=== PATIENT | female | born 1995 | race Two or more races ===

== ENCOUNTER 2024-06-28 07:30 | Inpatient (IN) | payer MEDICAID, SELFPAY ==
[2024-06-28] VITALS (81 sets, daily range): BP systolic 98–132; BP diastolic 56–75; PULSE 62–106; RESP 16–22; TEMP 36.6–36.9; O2SAT 79–100; BMI 33.2
--- NOTE | 2024-06-28 07:56 | PD.LDHP ---
Documentation for date of: 06/28/24 OB Labor/Induct. HPI History of Present Illness History of present illness: H and P dictated on the STAT line #9 in [place] [id number] Meds Home Medications and Allergies Home Medications ?Medication ?Instructions ?Recorded ?Confirmed ?Type vit no.95-ferrous 1 tab PO QDAY 08/23/18 02/25/21 History fumarate 28 mg-folic acid 800 mcg tablet () Allergies Allergy/AdvReac Type Severity Reaction Status Date / Time No Known Allergies Allergy Verified 02/25/21 00:29 OB Exam Physical Exam Vital signs: Pulse BP 74 118/69 06/28/24 07:41 06/28/24 07:41
--- NOTE | 2024-06-28 08:02 | PC.ADMIT ---
FULL BEDSIDE ASSESSMENT, PT PRESENTS FOR ADMISSION IN 452. PT IS A 28 Y/O @ 38.4 WEEKS GA. LAST VE WAS AT 07:45 BEFORE TRANSFER. EFM TRACING IS CATEGORY 1 TO CATEGORY 2 D/T MININAL VARIABILITY AT TIMES. PT HAS A BOLUS OF FLUID RUNNING AT THIS TIME. RN HAS ENCOURAGED PT TO VOID AND RN ASSISTED BACK TO BED. VSS AT THIS TIME. PT STATES PAIN 8/10 AND DECLINES AN EPIDURAL AT THIS TIME. RN EDUCATED PT ON POC FOR EXPECTED MANAGEMENT. PT UNDERSTANDS IF NO CHANGE HAS BEEN MADE IN A FEW HOURS DR VELAZQUEZ WOULD LIKE TO ADD PITOCIN FOR AUGMENTATION. RN EDUCATED ON PITOCIN AND THE USES FOR MEDICATION. PT AGREES TO POC AT THIS TIME.
[2024-06-28 08:06] LABS: ROM Kit Lot # 57809118; ROM Swab Mixed By: SAUCT; Swb Mxed in Solvent 1 min? Yes
[2024-06-28 08:07] LABS: Rupture of Fetal Membranes Negative (Negative)
--- NOTE | 2024-06-28 08:27 | ESHP_ITS ---
RE: YARELIS CA : 1995 DATE OF ADMISSION: 06/28/2024 HISTORY OF PRESENT ILLNESS: This is a 28-year-old 5, para 1-0-3-1 with due date of 07/08/2024 with intrauterine at 38 weeks and 4 days who presents to labor and delivery complaining of leaking fluid and contractions. It started at 0500 this morning. The patient's care was uncomplicated. Her Group B strep rectovaginal swab is negative. ALLERGIES: NO KNOWN DRUG ALLERGIES. MEDICATIONS: 1. multivitamin 1 tablet p.o. daily. 2. Ferrous sulfate 325 mg one p.o. b.i.d. 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 SOCIAL HISTORY: She denies any alcohol, drug use, or smoking. FAMILY HISTORY: Her brother has asthma. OBSTETRIC HISTORY: In 2018, spontaneous AB at 6 weeks gestation, no D and C; in 2018, 8 weeks spontaneous AB, no D and C; in 2018, 6 weeks spontaneous AB, no D and C; in 02/2021, 40-week normal vaginal delivery, 7-pound male, no complications. PAST SURGICAL HISTORY: Denies. REVIEW OF SYSTEMS: She denies any chest pain, palpitations, cough, fever, shortness of breath, or lower extremity pain. She denies any headache, change in vision, or right upper quadrant pain. PHYSICAL EXAMINATION: VITAL SIGNS: Blood pressure is 128/72 mmHg, heart rate 88, respirations 18, temperature is 98.2 degrees. HEENT: Oropharynx and sclerae are clear. LUNGS: Clear to auscultation bilaterally. HEART: Regular rate and rhythm. ABDOMEN: Gravid, consistent with estimated weight 7.5 pounds. PELVIC: See RN notes. EXTREMITIES: Nontender. SKIN: No gross or lesion. NEUROLOGIC: No focal deficit. ASSESSMENT AND PLAN: Intrauterine at 38 weeks and 4 days, rupture of membranes, early labor, anticipated spontaneous vaginal delivery. Informed consent was obtained. The patient was made aware of the risks, complications, alternatives, and benefits of the proposed procedure, and she agrees. She is aware of the risk of operative vaginal delivery and delivery and agrees with these modes of delivery if indicated. DT: 07:55:52 TT: 08:26:00 Ref: [id number] - TID: [id number] MTDD
--- NOTE | 2024-06-28 08:27 | PC.NURSE ---
PT HAS BEEN EDUCATED ON BABY MEDICATION AND INFORMATION LEAFLET HAS BEEN GIVEN TO PT AND S/O. AFTER EDUCATION PT HAS DECIDED TO RECEIVE ALL OF THE MEDS FOR BABY
[2024-06-28 08:45] LABS: Basophils % (Auto) 0 % (0-2.5); Eosinophils % (Auto) 0 % (0-10); Hematocrit 34.6 % (36.0-46.0); Hemoglobin 11.2 g/dL (12.0-16.0); Immature Granulocytes % (Auto) 1 % (0-0); Immature Granulocytes Auto 0.04 Thou/mm3 (0.00-0.00); Lymphocytes # (Auto) 2.2 Thou/mm3 (1.0-4.8); Lymphocytes % (Auto) 27 % (10-50); Mean Corpuscular HGB Conc 32.4 g/dl (31.0-37.0); Mean Corpuscular Hemoglobin 25.9 pg (25.0-35.0); Mean Corpuscular Volume 80 fL (80-100); Monocytes # (Auto) 0.5 Thou/mm3 (0.0-0.8); Monocytes % (Auto) 6 % (0-12); Neutrophils # (Auto) 5.5 Thou/mm3 (1.8-7.7); Neutrophils % (Auto) 67 % (37-80); Nucleated Red Blood Cell % 0 /100 WBC (0); Platelet Count 183 Thou/mm3 (140-440); RDW Standard Deviation 39.6 fL (36.4-46.3); Red Blood Count 4.32 Miln/mm3 (4.00-5.20); White Blood Count 8.3 Thou/mm3 (3.6-11.0)
[2024-06-28] MEDS: SODIUM CHLORIDE 0.9% 1000 ML 1,000 ML 100 ML IV ×2 (10:05→10:23)
[2024-06-28] MEDS: OXYTOCIN in NS 20 units 20 UNIT/1,000 ML BAG 125 UNIT IV ×2 (12:20→14:09)
--- NOTE | 2024-06-28 12:33 | OBDSUM_ITS ---
Data ([facility]) Data Hx Section: No : 5 Para: 1 Term: 1 : 0 : 3 Delivery Data ([facility]) Labor Data ROM Date: 06/28/24 ROM Time: 05:00 Rupture Type: SROM Amniotic Fluid: Clear Delivery Data EDC: 07/08/24 EDC calculated by:: LMP/early US confirmation Labor Onset Stage 1 Date: 06/28/24 Labor Onset Stage 1 Time: 07:45 Labor Onset Stage 2 Date: 06/28/24 Labor Onset Stage 2 Time: 12:16 Delivery Date: 06/28/24 Delivery Time: 12:17 Gestational age (weeks): 38 Gestational age (days): 4 Placenta Delivery Date: 06/28/24 Placenta Delivery Time: 12:20 Delivered by: Ion Cleveland Delivery nurse: Nida To Delivery Method Delivery: Vaginal Delivery Type: Spontaneous Presentation: Vertex Position: OA Anesthesia Type Primary Anesthesia: Epidural Placenta Placenta Delivery: Spontaneous Placenta Cultures Obtained: No Placenta Sent for Examination: No Cord Sample: Cord Blood Obtained EBL Estimated blood loss (ml): 200 Umbilical Cord Nuchal Cord: None Complications Complications: None [place] Data ([facility]) Data Gender: Male Infant Weight Grams: 2900 1 Minute Total: 9 5 Minute Total: 9
--- NOTE | 2024-06-28 12:34 | PD.LDDS ---
DS: Providers Provider Date of admission: 06/28/24 07:51 Primary care physician: Physician No Primary/Family Admitting Provider: Ion Cleveland MD Attending Provider on Admission: Ion Cleveland MD Attending Provider on DC: Ion Cleveland MD Discharging Provider: Ion Cleveland MD DS: Diagnosis Problem List Completed Was Problem List Reviewed/Reconciled?: Yes Summary/Hosp Course Brief History: H and P dictated on the STAT line #9 in [facility] [id number] Time Spent with Patient Time attestation: Total time spent providing and/or coordinating discharge services: Exam Vital Signs Temp Pulse Resp BP Pulse Ox 98.3 F 80 16 111/56 L 100 06/28/24 10:30 06/28/24 12:32 06/28/24 10:30 06/28/24 12:32 06/28/24 12:29 Discharge Plan Plan Patient Disposition: HOME (Self Care) Patient condition on transfer: Stable Prescriptions/Referrals Prescriptions/Med Rec: New ibuprofen 600 mg tablet 600 mg PO Q6H PRN (Reason: pain) Qty: 30 0RF Continued PNV cmb#95-ferrous fumarate-FA [] 28 mg iron- 800 mcg Tablet 1 tab PO QDAY Referrals: No Primary/Family,Physician [Primary Care Provider] - Patient/Caregiver Discharge Instructions Discharge Activity: activity as tolerated Other Discharge Activity Instructions:: Follow up office 6 weeks. Education Materials: After a Vaginal , Breast Care After , Nutrition While Print Language: Mongolian Stand Alone Forms: [employer] Award Info., Patient Portal Info Letter Discharge Order Discharge Orders: Discharge (Routine); Ordered 06/29/24 Ordered By: Ion Cleveland Planned Discharge Date 06/29/24
[2024-06-28] MEDS: IBUPROFEN TAB 400 MG TABLET 800 MG PO (13:26)
[2024-06-28] MEDS: BENZO/LANO/ALOE (Dermoplast) 60 GM CAN 1 SPRAY TOP (14:28)
[2024-06-28] MEDS: ACETAMINOPHEN 325 MG TABLET 650 MG PO (18:02)
[2024-06-28 18:33] LABS: Syphilis Nonreactive (Nonreactive)
[2024-06-28 18:49] LABS: Basophils % (Auto) 0 % (0-2.5); Eosinophils % (Auto) 0 % (0-10); Hematocrit 30.4 % (36.0-46.0); Hemoglobin 9.7 g/dL (12.0-16.0); Immature Granulocytes % (Auto) 1 % (0-0); Immature Granulocytes Auto 0.05 Thou/mm3 (0.00-0.00); Lymphocytes # (Auto) 1.5 Thou/mm3 (1.0-4.8); Lymphocytes % (Auto) 14 % (10-50); Mean Corpuscular HGB Conc 31.9 g/dl (31.0-37.0); Mean Corpuscular Hemoglobin 25.7 pg (25.0-35.0); Mean Corpuscular Volume 81 fL (80-100); Monocytes # (Auto) 0.6 Thou/mm3 (0.0-0.8); Monocytes % (Auto) 5 % (0-12); Neutrophils # (Auto) 8.9 Thou/mm3 (1.8-7.7); Neutrophils % (Auto) 80 % (37-80); Nucleated Red Blood Cell % 0 /100 WBC (0); Platelet Count 169 Thou/mm3 (140-440); RDW Standard Deviation 39.9 fL (36.4-46.3); Red Blood Count 3.77 Miln/mm3 (4.00-5.20)
[2024-06-29 00:16] VITALS: BP 99/69; PULSE 78; RESP 21; TEMP 36.7; O2SAT 98
[2024-06-29] MEDS: IBUPROFEN TAB 400 MG TABLET 800 MG PO (00:33)
[2024-06-29 07:30] VITALS: BP 113/71; PULSE 66; RESP 17; TEMP 36.8; O2SAT 97
--- NOTE | 2024-06-29 08:13 | ESPR_ITS ---
RE: YARELIS CA : 1995 DATE OF SERVICE: 06/29/2024 SUBJECTIVE: day #1, the patient denies any problem or complaint. She is voiding. She is ambulating. She is tolerating diet. She is passing flatus. She denies any excessive vaginal bleeding. She denies any dizziness or lightheadedness. She denies any chest pain, palpitations, shortness of breath or lower extremity pain. OBJECTIVE: Vital Signs: Blood pressure 99/69, heart rate 78, respirations 21, temperature is 98.1, pulse oximetry is 98% on room air. Lungs: Clear to auscultation bilaterally. Heart: Regular rate and rhythm. Abdomen: Fundus is firm. Extremities: Nontender. LABORATORY DATA: Hemoglobin predelivery is 11.2, post delivery is 9.7. ASSESSMENT: 1. day #1 status post spontaneous vaginal delivery. 2. Anemia, but hemodynamically stable. PLAN: Discharge home. Follow up in the office in 6 weeks. Continue vitamin daily. Ibuprofen p.r.n. pain. Discharge instructions were given. DT: 07:16:35 TT: 08:11:00 Ref: [id number] - TID: [id number]
[2024-06-29 11:30] VITALS: BP 117/74; PULSE 83; RESP 18; TEMP 36.9; O2SAT 99
== END 2024-06-29 13:02 | disposition home or self-care (01) | DRG 560 ==
LOC: S4SX 12:37 → S4NX 14:50
PROVIDERS: Admitting Provider Specialist; Visit Provider Specialist
DX: O42.02 Full-term premature rupture of membranes, onset of labor within 24 hours of rupture (principal); Z37.0 Single live birth; Z3A.38 38 weeks gestation of pregnancy; O90.81 Anemia of the puerperium
CPT/HCPCS: 36415; 59409; 84112; 85025; 86780; 86850; 86900; 86901; J2590; J2795; J3010; J7030; A9270

== ENCOUNTER 2024-12-31 17:02 | Emergency (ER) | payer MEDICAID, SELFPAY ==
[2024-12-31 17:09] VITALS: BP 130/84; PULSE 102; RESP 17; TEMP 36.9; O2SAT 98; BMI 31.2
--- NOTE | 2024-12-31 17:22 | XR_ITS ---
Examination: Complete OB ultrasound, less than 14 weeks, transabdominal Date and time of exam: December 31, 2024 1827 hours INDICATIONS: Onset left-sided pelvic pain today, history 3 Technique: Obstetrical ultrasound images less than 14 weeks performed via transabdominal imaging Findings: Uterus 9.1 cm, intrauterine gestational sac 1.21 cm corresponds to 6 weeks 0 days gestational age No pole, no cardiac activity Subchorionic hemorrhage 20 mm Right ovary 2.2 cm arterial flow 16 mm follicular cyst Left ovary 4.9 cm arterial flow 18 mm follicular cyst IMPRESSION: Empty intrauterine gestational sac corresponding to 6 weeks 0 days gestational age No pole, no cardiac activity Recommend short-term follow-up transvaginal pelvic sonography to exclude demise
--- NOTE | 2024-12-31 17:22 | PD.EDRME ---
Rapid Medical Screening Exam [facility], LAT[facility] Arrival date/time: 12/31/24 17:02 29-year-old female with no known medical history presents to the emergency room with a chief complaint of left-sided pelvic pain. Patient states she is also 8 weeks late on her period and when she took a test this morning there was a very faint line. Patient denies any dysuria I have greeted and performed a focused initial assessment of this patient. A comprehensive ED assessment and evaluation of the patient, analysis of all test results, and completion of the medical decision making process will be conducted by additional ED providers. Chief Complaint: Abdominal Pain Vital signs: Vital Signs Temperature 98.4 F 12/31/24 17:09 Pulse Rate 102 H 12/31/24 17:09 Respiratory Rate 17 12/31/24 17:09 Blood Pressure 130/84 12/31/24 17:09 Pulse Oximetry (%) 98 12/31/24 17:09 Oxygen Delivery Method Room Air 12/31/24 17:09 Vital signs reviewed by provider: Yes
[2024-12-31 17:53] LABS: Collection Type, Urine Clean Catch
[2024-12-31 17:54] LABS: Basophils # (Auto) 0.0 Thou/mm3 (0.0-0.2); Basophils % (Auto) 0 % (0-2.5); Eosinophils # (Auto) 0.0 Thou/mm3 (0.0-0.5); Eosinophils % (Auto) 0 % (0-10); Hematocrit 36.7 % (36.0-46.0); Hemoglobin 12.0 g/dL (12.0-16.0); Immature Granulocytes Auto 0.04 Thou/mm3 (0.00-0.00); Lymphocytes # (Auto) 2.3 Thou/mm3 (1.0-4.8); Lymphocytes % (Auto) 26 % (10-50); Mean Corpuscular HGB Conc 32.7 g/dl (31.0-37.0); Mean Corpuscular Hemoglobin 27.5 pg (25.0-35.0); Mean Corpuscular Volume 84 fL (80-100); Monocytes # (Auto) 0.8 Thou/mm3 (0.0-0.8); Monocytes % (Auto) 8 % (0-12); Neutrophils # (Auto) 5.8 Thou/mm3 (1.8-7.7); Neutrophils % (Auto) 65 % (37-80); Nucleated Red Blood Cell # 0.00 Thou/mm3 (0.00-0.00); Nucleated Red Blood Cell % 0 /100 WBC (0); Platelet Count 261 Thou/mm3 (140-440); RDW Standard Deviation 42.1 fL (36.4-46.3); Red Blood Count 4.37 Miln/mm3 (4.00-5.20); White Blood Count 8.9 Thou/mm3 (3.6-11.0)
[2024-12-31 18:03] LABS: Bilirubin,Urine Negative (Negative); Blood,Urine Negative (Negative); Clarity,Urine Turbid (Clear/Hazy); Color,Urine Lt-Yellow (Lt Yel-Yel); Glucose, Urine Negative (Negative); Ketones,Urine Negative (Negative); Leukocyte Esterase,Urine Positive (Negative); Nitrite,Urine Negative (Negative); PH,Urine 6.0 (5.0-7.0); Protein,Urine Negative (Neg - Trace); RBC,Urine 1 /hpf (0-3); Specific Gravity,Urine 1.012 (1.001-1.035); Squamous Epithelial Cell,Urine 7 /hpf (0-5); Urobilinogen,Urine Negative mg/dL (0.0-1.0); WBC,Urine 3 /hpf (0-5)
[2024-12-31 18:07] LABS: HCG,Qualitative Serum Positive
[2024-12-31 18:22] LABS: Alanine Aminotransferase 10 U/L (10-49); Albumin, Serum 4.2 gm/dL (3.5-5.0); Albumin/Globulin Ratio 1.5 (1.2-2.2); Alkaline Phosphatase 70 U/L (46-116); Anion Gap 10 (7-16); Aspartate Amino Transferase 14 U/L (0-34); BUN/Creatinine Ratio 8 Ratio (12-20); Bilirubin,Total 0.3 mg/dL (0.3-1.2); Blood Urea Nitrogen < 5 mg/dL (9-23); Calcium 8.8 mg/dL (8.3-10.6); Calcium (Corrected) 8.8 mg/dL (8.5-10.1); Carbon Dioxide 22.0 mMol/L (20.0-31.0); Chloride 107 mMol/L (98-107); Creatinine (Component) 0.6 mg/dL (0.6-1.3); Estimated Creatinine Clearance 125.2 mL/min (>60); Globulin 2.8 gm/dL (2.3-3.5); Glucose 91 mg/dL (74-106); Osmolality,Calculated 274 (275-295); Potassium 3.4 mMol/L (3.4-5.1); Sodium 139 mMol/L (136-145); Total Protein 7.0 gm/dL (5.7-8.2); eGFR > 60 See Note
[2024-12-31 18:48] LABS: Beta HCG,Quantitative 21860 mIU/mL (<5.0)
--- NOTE | 2024-12-31 19:47 | PD.EDFMALE ---
ED Female Urogenital RME/HPI General Chief complaint: Abdominal Pain Stated complaint: pelvic pain possible Time Seen by Provider: 12/31/24 18:16 Arrival date/time: 12/31/24 17:02 RME / HPI RME / HPI Narrative: 29-year-old female with no known medical history presents to the emergency room with a chief complaint of left-sided pelvic pain. Patient states she is also 8 weeks late on her period and when she took a test this morning there was a very faint line. Patient denies any dysuria. Denies any vomiting. Denies any other complaints. Patient is 6 para 2 3. Patient denies any vaginal bleeding. Or spotting. Related Data Home Medications ?Medication ?Instructions ?Recorded ?Confirmed vit no.95-ferrous 1 tab PO QDAY 08/23/18 02/25/21 fumarate 28 mg-folic acid 800 mcg tablet () Previous Rx's ?Medication ?Instructions ?Recorded ibuprofen 600 mg tablet 600 mg PO Q6H PRN pain #30 tabs 06/28/24 Allergies Allergy/AdvReac Type Severity Reaction Status Date / Time No Known Allergies Allergy Verified 12/31/24 17:05 Review of Systems Review of Systems Narrative Review of Systems: Review of system reviewed and within normal limits except mentioned in HPI ED Exam Narrative Physical exam: VITAL SIGNS: Reviewed. GENERAL APPEARANCE: Alert and interactive, follows commands, no acute distress, HEAD AND FACE: Non-traumatic. ENT: PERRL, pink conjunctivitis, eyelid no trauma, Mucous membrane moist. NECK: Supple, nontender, no nuchal rigidity. CHEST: No tenderness, no crepitus, no paradoxical movement, no retractions. LUNGS: Clear, well ventilated, symmetric, no rales, no wheezing, no ronchi, no stridor, good breath sounds bilaterally. HEART: Regular rate, regular rhythm, no murmur, no gallops. ABDOMEN: Soft, positive bowel sounds, nondistended, no guarding, nontender, no rebound, no masses, RECTAL: Deferred. GENITAL: Deferred. NEUROLOGICAL: Gross motor function intact sensory function intact, Appropriate for age. MUSCULOSKELETAL: low back nontender, full range of motion. EXTREMITIES: Nontender, full range of motion. SKIN: Color pink, dry, no rash, no lacerations, no abrasions, no contusions. LYMPHATICS: Deferred. Course Quality Measures none Orders Category Date Time Status US OB <= 14 weeks fetus Stat Exams 12/31/24 17:22 Completed ABO/RH Type Stat Lab 12/31/24 17:46 Completed Beta HCG,Quantitative Stat Lab 12/31/24 17:46 Completed CBC Stat Lab 12/31/24 17:46 Completed CMP [Comprehensive Metabolic Panel] Stat Lab 12/31/24 17:46 Completed HCG,Qualitative Serum Stat Lab 12/31/24 17:46 Completed UA [Urinalysis] Stat Lab 12/31/24 17:45 Completed Vital Signs Vital signs: Vital Signs Temperature 98.4 F 12/31/24 17:09 Pulse Rate 102 H 12/31/24 17:09 Respiratory Rate 17 12/31/24 17:09 Blood Pressure 130/84 12/31/24 17:09 Pulse Oximetry (%) 98 12/31/24 17:09 Oxygen Delivery Method Room Air 12/31/24 17:09 Urogenital - Female MDM Narrative MDM Narrative:: 29-year-old female with no known medical history presents to the emergency room with a chief complaint of left-sided pelvic pain. Patient states she is also 8 weeks late on her period and when she took a test this morning there was a very faint line. Patient denies any dysuria. Denies any vomiting. Denies any other complaints. Patient is 6 para 2 3. Patient denies any vaginal bleeding. Or spotting. Patient's CBC came back unremarkable. Urinalysis showed no UTI. Patient hCG was noted to be 21 860. Ultrasound of the pelvis showed intrauterine gestational sac, no activity noted no pole no cardiac activity noted. Results discussed with the patient. She was advised to closely follow-up. SHADOWGRAPH SCALE OPERATOR in 1 to 2 days or if return to emergency room for reevaluation in 2 to 3 days. Patient agrees with the plan. Patient data External records reviewed:: None Clinical information provided by:: patient Social determinants that could affect healthcare access:: none Patient has the following chronic illnesses:: None How is presenting disease/condition affected by chronic disease/condition?: no chronic disease Evaluation data The following diagnostics were reviewed and interpreted by me:: lab results and radiology exam(s) Lab and/or radiology exams considered but not ordered:: None Interpretation Summary: See results MDM Medications / Prescriptions Medications or Prescriptions considered but not ordered:: None Medication administrations:: None Consultations Consultation(s) initiated? (list below): No Diagnosis Urogenital Female Differential Diagnosis: urinary tract infection and other (, pelvic pain in ) Most likely diagnosis given after review of the tests above:: Pelvic pain in Admission Indicated Admission indicated?: not indicated Admission Request Was there a request for admission?: No Disposition Plan Disposition Plan: Discharge Discharge Attestation Discharge Attestation: The patient was given an opportunity to ask questions and understood the discharge instructions. Discharge instructions specifically effects, indications for sooner follow up or return to the emergency department, and the expected course of current diagnosis. Patient condition: Stable Discharge Plan Plan Patient Disposition: HOME (Self Care) Discharge Disposition comment: Stable Prescriptions/Referrals Prescriptions/Med Rec: No Action PNV cmb#95-ferrous fumarate-FA [] 28 mg iron- 800 mcg Tablet 1 tab PO QDAY ibuprofen 600 mg tablet 600 mg PO Q6H PRN (Reason: pain) Qty: 30 0RF Referrals: No Primary/Family,Physician [Primary Care Provider] - In 1 week Problem List Clinical Impression: Pelvic pain during Patient/Caregiver Discharge Instructions Discharge Activity: activity as tolerated Education Materials: Understanding the Pain Response Additional Instructions: Thank you for the opportunity for serving you today. You are stable for discharged . You are advised to: Follow-up with your SHADOWGRAPH SCALE OPERATOR in 1 to 2 days Return to ED for worsening of symptoms Increase oral fluids Take [id number] Tylenol as needed for pain Print Language: Malay Stand Alone Forms: [employer] Award Info., Patient Portal Info Letter JOSE/DIONISIO Supervising Physician ADELAIDA Supervising Physician: MD Natalie
== END 2025-01-01 06:33 | disposition home or self-care (01) ==
PROVIDERS: Nurse Practitioner Family; Emergency Provider Emergency Medicine
DX: O26.891 Other specified pregnancy related conditions, first trimester (principal); Z3A.01 Less than 8 weeks gestation of pregnancy; R10.2 Pelvic and perineal pain
CPT/HCPCS: 36415; 76801; 80053; 81001; 84702; 84703; 85025; 86900; 86901; 99283

== ENCOUNTER 2025-02-25 10:47 | Day surgery (SDC) | payer MEDICAID, SELFPAY ==
[2025-02-25] VITALS (16 sets, daily range): BP systolic 98–126; BP diastolic 64–80; PULSE 83–103; RESP 13–20; TEMP 36.6–37.2; O2SAT 99–100; BMI 31.2
--- NOTE | 2025-02-25 11:50 | XR_ITS ---
Examination: Complete OB ultrasound, less than 14 weeks, transabdominal Date and time of exam: February 25, 2025 1157 hours INDICATIONS: Status post January 15, 2025 with persistent vaginal bleeding. Technique: Obstetrical ultrasound images less than 14 weeks performed via transabdominal imaging Findings: Uterus 7.3 cm intrauterine gestational sac 0.6 cm corresponds to 5 weeks 2 days gestational age. No pole, no cardiac activity Right ovary 3.3 cm arterial flow Left knee 4.4 cm arterial flow IMPRESSION: Empty intrauterine gestational sac corresponding to 5 weeks 2 days gestational age, recommend transvaginal pelvic sonography follow-up..
--- NOTE | 2025-02-25 11:51 | EDNOTE_ITS ---
ED OB Contraction Preg RMI/HPI General Chief complaint: Vaginal Bleeding Stated complaint: VAGINAL BLEEDING AND WEAK, LOW IRON Time Seen by Provider: 02/25/25 11:15 Arrival date/time: 02/25/25 10:47 RME / HPI RME / HPI Narrative: 29-year-old female patient came in for evaluation regarding bleeding. Patient has been having 6 weeks of vaginal bleeding, today only 1 pad however patient developed and complaining of easy fatigability, dizziness, and dizziness. Patient had therapeutic done 6 weeks ago she took pills but since then she has been having bleeding. Also complaining of pelvic discomfort. Patient is 6 para 3 2, abortions 3. Related Data Home Medications ?Medication ?Instructions ?Recorded ?Confirmed vit no.95-ferrous 1 tab PO QDAY 08/23/1802/14 fumarate 28 mg-folic acid 800 mcg tablet () Previous Rx's ?Medication ?Instructions ?Recorded ibuprofen 600 mg tablet 600 mg PO Q6H PRN pain #30 t abs 06/28/24 Allergies Allergy/AdvReac Type Severity Reaction Status Date / Time No Known Allergies Allergy Verified 02/25/25 10:48 Review of Systems Review of Systems Narrative Review of Systems: Review of system reviewed and within normal limits except mentioned in HPI ED Exam Narrative Physical exam: VITAL SIGNS: Reviewed. GENERAL APPEARANCE: Alert and interactive, follows commands, no acute distress, HEAD AND FACE: Non-traumatic. ENT: PERRL, pale conjunctiva, eyelid no trauma, Mucous membrane moist. NECK: Supple, nontender, no nuchal rigidity. CHEST: No tenderness, no crepitus, no paradoxical movement, no retractions. LUNGS: Clear, well ventilated, symmetric, no rales, no wheezing, no ronchi, no stridor, good breath sounds bilaterally. HEART: Regular rate, regular rhythm, no murmur, no gallops. ABDOMEN: Soft, positive bowel sounds, nondistended, no guarding, nontender, no rebound, no masses, RECTAL: Deferred. GENITAL: Deferred. NEUROLOGICAL: Gross motor function intact sensory function intact, Appropriate for age. MUSCULOSKELETAL: low back nontender, full range of motion. EXTREMITIES: Nontender, full range of motion. SKIN: Color pale, dry, no rash, no lacerations, no abrasions, no contusions. LYMPHATICS: Deferred. Course Quality Measures none Orders Category Date Time Status Place in Surgical Day Care Routine Admission 02/25/25 16:34 Active Activity as Tolerated Routine Care 02/25/25 16:34 Ordered In and Out Catheter X1 Care 02/25/25 16:33 Active Insert IV NOW Care 02/25/25 16:26 Active NPO NOW Care 02/25/25 16:31 Active Obtain Written Consent For: NOW Care 02/25/25 16:34 Active Sequential Compression Device NOW Care 02/25/25 16:37 Active Transfuse,blood/blood products ONCE Care 02/25/25 15:06 Active Consult to Gynecology Stat Cons 02/25/25 15:07 Ordered Diet NPO (NOW) Diet 02/25/25 16:31 Active US OB <= 14 weeks fetus Stat Exams 02/25/25 11:50 Completed Basic Metabolic Panel Stat Lab 02/25/25 12:57 Completed Beta HCG,Quantitative Stat Lab 02/25/25 12:57 Completed CBC Stat Lab 02/25/25 12:57 Completed Type and Screen Stat Lab 02/25/25 12:57 Results Urinalysis Stat Lab 02/25/25 13:50 Completed prbc [Red Blood Cells] Stat Lab 02/25/25 12:57 Results Doxycycline Inj [Vibramycin Inj] 100 mg Med 02/25/25 16:38 Active Sodium Chloride 0.9% (Pop) [NS 0.9% mini bag] 100 ml IV X1 Code Status Routine Oth 02/25/25 16:33 Ordered Vital Signs Vital signs: Vital Signs Temperature 98.8 F 02/25/25 11:32 Pulse Rate 95 02/25/25 11:32 Respiratory Rate 18 02/25/25 11:32 Blood Pressure 113/73 02/25/25 11:32 Pulse Oximetry (%) 100 02/25/25 11:32 Oxygen Delivery Method Room Air 02/25/25 11:32 Vaginal Bleeding MDM Narrative MDM Narrative: 29-year-old female patient came in for evaluation regarding bleeding. Patient has been having 6 weeks of vaginal bleeding, today only 1 pad however patient developed and complaining of easy fatigability, dizziness, and dizziness. Patient had therapeutic done 6 weeks ago she took pills but since then she has been having bleeding. Also complaining of pelvic discomfort. Patient is 6 para 3 2, abortions 3. Patient's laboratory workup is significant for anemia of 7.2 hematocrit of 23.1. Patient's hCG today was noted to be 3 urinalysis no UTI. Ultrasound of the pelvis showed Empty intrauterine gestational sac corresponding to 5 weeks 2 days gestational age, recommend transvaginal pelvic sonography follow-up.. Discussed with the patient. Who agrees to be admitted for further management by PUBLIC SAFETY TEACHER. I spoke with Dr. Goodrich PUBLIC SAFETY TEACHER on-call who examined the patient in the emergency room and will do emergency D&C with the patient. Patient was also given 1 unit of packed RBC in the emergency room Patient data External records reviewed:: None Clinical information provided by:: patient Social determinants that could affect healthcare access:: none Patient has the following chronic illnesses:: None How is presenting disease/condition affected by chronic disease/condition?: no chronic disease Evaluation data The following diagnostics were reviewed and interpreted by me:: lab results and radiology exam(s) Lab and/or radiology exams considered but not ordered:: None Interpretation Summary: see results in mdm Medications / Prescriptions Medications or Prescriptions considered but not ordered:: none Medication administrations:: Medication Administration History Doxycycline Hyclate 100 mg/ (Sodium Chloride) 100 mls @ 100 mls/hr IV X1 ONE Stop: 02/25/25 17:37 Doxycycline Consultations Consultation(s) initiated? (list below): Yes Consultation #1 (Physician, Specialty, Details): PUBLIC SAFETY TEACHER on-call, Dr. Goodrich, thank you DrMyesha Diagnosis Vaginal Bleeding Differential Diagnosis: missed , dysfunctional uterine bleeding and menometrorrhagia Most likely diagnosis given after review of the tests above:: Anemia, missed Admission Indicated Admission indicated?: indicated Admission Request Was there a request for admission?: Yes Admission Attestation Admission request attestation: Dr Goodrich agrees to accept the patient for admission. Disposition Plan Disposition Plan: Admit Discharge Plan Plan Patient Disposition: Admit Acute Care w/in Hospital Prescriptions/Referrals Prescriptions/Med Rec: No Action PNV no.95-ferrous fumarate-FA [] 28 mg iron- 800 mcg Tablet 1 tab PO QDAY ibuprofen 600 mg tablet 600 mg PO Q6H PRN (Reason: pain) Qty: 30 0RF Referrals: No Primary/Family,Physician [Primary Care Provider] - In 1 week Problem List Clinical Impression: Missed Patient/Caregiver Discharge Instructions Print Language: Kyrgyz Stand Alone Forms: [employer] Award Info., Patient Portal Info Letter
[2025-02-25 13:17] LABS: Basophils # (Auto) 0.0 Thou/mm3 (0.0-0.2); Basophils % (Auto) 0 % (0-2.5); Eosinophils # (Auto) 0.0 Thou/mm3 (0.0-0.5); Eosinophils % (Auto) 0 % (0-10); Hematocrit 23.1 % (36.0-46.0); Immature Granulocytes Auto 0.05 Thou/mm3 (0.00-0.00); Lymphocytes # (Auto) 2.0 Thou/mm3 (1.0-4.8); Lymphocytes % (Auto) 29 % (10-50); Mean Corpuscular HGB Conc 31.2 g/dl (31.0-37.0); Mean Corpuscular Hemoglobin 26.6 pg (25.0-35.0); Mean Corpuscular Volume 85 fL (80-100); Monocytes # (Auto) 0.4 Thou/mm3 (0.0-0.8); Monocytes % (Auto) 6 % (0-12); Neutrophils # (Auto) 4.5 Thou/mm3 (1.8-7.7); Neutrophils % (Auto) 64 % (37-80); Nucleated Red Blood Cell # 0.00 Thou/mm3 (0.00-0.00); Nucleated Red Blood Cell % 0 /100 WBC (0); Platelet Count 320 Thou/mm3 (140-440); RDW Standard Deviation 44.0 fL (36.4-46.3); Red Blood Count 2.71 Miln/mm3 (4.00-5.20); White Blood Count 7.1 Thou/mm3 (3.6-11.0)
[2025-02-25 13:24] LABS: Hemoglobin 7.2 g/dL (12.0-16.0)
[2025-02-25 13:33] LABS: Anion Gap 10 (7-16); BUN/Creatinine Ratio 12 Ratio (12-20); Beta HCG,Quantitative 3 mIU/mL (<5.0); Blood Urea Nitrogen 7 mg/dL (9-23); Calcium 8.8 mg/dL (8.3-10.6); Carbon Dioxide 24.0 mMol/L (20.0-31.0); Chloride 106 mMol/L (98-107); Creatinine (Component) 0.6 mg/dL (0.6-1.3); Estimated Creatinine Clearance 125.2 mL/min (>60); Glucose 84 mg/dL (74-106); Osmolality,Calculated 276 (275-295); Potassium 3.8 mMol/L (3.4-5.1); Sodium 140 mMol/L (136-145); eGFR > 60 See Note
[2025-02-25 13:59] LABS: Collection Type, Urine Clean Catch
[2025-02-25 14:15] LABS: Amorphous Crystals,Urine Present (Absent); Bacteria,Urine Rare; Bilirubin,Urine Negative (Negative); Blood,Urine 3+ (Negative); Clarity,Urine Clear (Clear/Hazy); Color,Urine Yellow (Lt Yel-Yel); Glucose, Urine Negative (Negative); Ketones,Urine Negative (Negative); Leukocyte Esterase,Urine Negative (Negative); Nitrite,Urine Negative (Negative); PH,Urine 6.0 (5.0-7.0); Protein,Urine Negative (Neg - Trace); RBC,Urine 4 /hpf (0-3); Specific Gravity,Urine 1.021 (1.001-1.035); Squamous Epithelial Cell,Urine 2 /hpf (0-5); Urobilinogen,Urine Negative mg/dL (0.0-1.0); WBC,Urine 2 /hpf (0-5)
--- NOTE | 2025-02-25 16:39 | PD.GYNHP ---
Documentation for date of: 02/25/25 COLLECTION MANAGER - HPI History of Present Illness History of present illness: Tiny is a 29yo presenting for continuous bleeding since early February when she underwent medical termination of with misoprostol and mifepristone. She took the medication and then began having daily bleeding. She had a follow up ultrasound at the clinic where the termination was performed and she states they told her the uterus was empty. However, she continued to have daily bleeding that waxed and waned, at times would pass large clots the size of her hand. One week ago she followed up at another hospital and was told she still had something in the uterus at which point she was given another dose of medication (presumably cytotec)- she notes she didn't experience much difference in bleeding afterwards. Yesterday she had significant amount of clots that passed and today she was feeling weak, lightheaded, easily fatigued which prompted her to come to the ER. Review of Systems Review of Systems Narrative Review of Systems: Review of Systems Systems Reviewed: All systems reviewed, normal except as documented Constitutional Constitutional: Denies body ache(s), Denies chills, Denies fever(s) and Denies headache(s) ENT Ears, Nose, Mouth, and Throat: Denies headache(s) and Denies vertigo Cardiovascular Cardiovascular: Denies chest pain, Denies palpitations, Denies dyspnea and Denies syncope Respiratory Respiratory: Denies cough, Denies dyspnea Gastrointestinal Gastrointestinal: Denies nausea and Denies vomiting Neurologic Neurologic: Denies convulsions, Denies headache(s), Denies other visual disturbances, Denies syncope and Denies vertigo Past Medical History Family History OTHER FAMILY HX: non-contributory Surgical History OTHER SURGICAL HX: denies any surgeries Social History SOCIAL: Has two young children ages 4 and <1 year (born Jun 2024). No tobacco/ETOH/illicit drugs. 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 Recurrent loss Denies any abnormal pap smears or STIs Meds Home Medications and Allergies Home Medications ?Medication ?Instructions ?Recorded ?Confirmed ?Type vit no.95-ferrous 1 tab PO QDAY 08/23/18 02/25/21 History fumarate 28 mg-folic acid 800 mcg tablet () Allergies Allergy/AdvReac Type Severity Reaction Status Date / Time No Known Allergies Allergy Verified 02/25/25 10:48 Exam - COLLECTION MANAGER Vital Signs Temp Pulse Resp BP Pulse Ox O2 Del Method 98.7 F 87 17 108/64 100 Room Air 02/25/25 14:58 02/25/25 14:58 02/25/25 14:58 02/25/25 14:58 02/25/25 14:58 02/25/25 14:58 Narrative Exam General: well developed, well nourished, no acute distress, conversant Cardiac: normal heart rate Lungs: breathing without distress Abdomen: soft, non-tender, no rebound or guarding Extremities: no edema BLE COLLECTION MANAGER - Results Labs 02/25/25 12:57 02/25/25 12:57 Labs: Short CBC 02/25/25 Range/Units 12:57 WBC 7.1 (3.6-11.0) Thou/mm3 Hgb 7.2 L (12.0-16.0) g/dL Hct 23.1 L (36.0-46.0) % Plt Count 320 (140-440) Thou/mm3 BMP 02/25/25 12:57 Sodium 140 Potassium 3.8 Chloride 106 Carbon Dioxide 24.0 BUN 7 L Creatinine 0.6 Glucose 84 Calcium 8.8 Urine 02/25/25 Range/Units 13:50 Urine Color Yellow (Lt Yel-Yel) Urine Clarity Clear (Clear/Hazy) Urine pH 6.0 (5.0-7.0) Ur Specific [place] 1.021 (1.001-1.035) Urine Protein Negative (Neg - Trace) Urine Glucose (UA) Negative (Negative) Impressions Impression: Examination: Complete OB ultrasound, less than 14 weeks, transabdominal Date and time of exam: February 25, 2025 1157 hours INDICATIONS: Status post January 15, 2025 with persistent vaginal bleeding. Technique: Obstetrical ultrasound images less than 14 weeks performed via transabdominal imaging Findings: Uterus 7.3 cm intrauterine gestational sac 0.6 cm corresponds to 5 weeks 2 days gestational age. No pole, no cardiac activity Right ovary 3.3 cm arterial flow Left knee 4.4 cm arterial flow IMPRESSION: Empty intrauterine gestational sac corresponding to 5 weeks 2 days gestational age, recommend transvaginal pelvic sonography follow-up.. Assessment and Plan Assessment and plan (1) Retained products of conception after induced termination of : Status: Acute Assessment and plan: Tiny is a 29yo with retained products of conception after medical termination of resulting in continuous bleeding and severe symptomatic anemia. Vitals wnl, benign exam. On ultrasound there remains an intra-uterine gestational sac measuring 0.6cm and EMS measures 1.92cm. Hcg has declined from 2,860 to 3. Hgb has decreased from 12 to 7.2. Discussed with patient management options to include: expectant management, medical management and surgical management. My formal recommendation is for surgical management given the persistence of patient's bleeding that has caused severe symptomatic anemia. She is amenable. Plan: -Same day surgery: suction dilation and curettage -1 unit pRBCs to be transfused now prior to going back to OR -NPO -Counseled/consented re: suction dilation and curettage. Discussed all r/b/a to include: bleeding (possible need for further blood transfusion), infection, injury to nearby structures such as bladder, bowel, ureters, blood vessels, nerves with possible need for abdominal incision and further surgery, pain, hysterectomy, DVT/PE, . Answered all questions to patient and her support person's satisfaction. -IV abx ppx: doxycycline 100mg IV x1 pre-operatively -Patient last ate at 1100 (granola bar)- will aim for 6hr NPO, hopefully at which point pRBCs are being infused or completed (2) Anemia: Status: Acute (3) Obesity (BMI 30.0-34.9): Status: Acute Quality Measures Quality Measures none (2) Anemia Qualifiers: Anemia type: iron deficiency Iron deficiency anemia type: chronic blood loss Qualified Code(s): D50.0 - Iron deficiency anemia secondary to blood loss (chronic)
[2025-02-25] MEDS: DOXYCYCLINE INJ 100 MG in SODIUM CHLORIDE 0.9% (POP) 100 ML IV (18:14)
--- NOTE | 2025-02-25 19:14 | ESOP_ITS ---
Operative Note - RESIDENT PROGRAMS ASSISTANT Procedure Date of procedure: 02/25/25 Procedure Performed: suction dilation and curettage Indication: Tiny is a 29yo with continuous daily bleeding that waxes and wanes since medical termination 6 weeks prior. Ultrasound shows continued presence of small gestational sac even though hcg has decreased from >2,000 to 3. She now has severe symptomatic anemia with Hgb downtrend from 12 to 7.2. Pre-Op diagnosis: Continuous bleeding related to retained products of conception after medical termination with resultant severe anemia Post-Op diagnosis: Continuous bleeding related to retained products of conception after medical termination with resultant severe anemia Anesthesia type: General Fluids: crystalloid Specimen: other (products of conception) Estimated blood loss (ml): 5 Findings: Uterus sounded to 7cm. Small amount of tissue within uterus. Complications: none Narrative: After obtaining informed consent, the patient was taken to the operating room where she underwent general anesthesia. She was placed in the low lithotomy position, and the perineum and vagina were prepped and draped in sterile fashion. She was given doxycycline 100mg IV x1 for surgical prophylaxis. 1u pRBCs finished infusing just before surgery began. The bivalved speculum was inserted into the vagina. The anterior segment of the cervix was grasped with a single-tooth tenaculum. The uterus sounded to 7cm. The cervix was sequentially dilated using Shona dilators. A 7mm suction curette was introduced to the fundus of the uterus. Suction was activated at 60cm of water. 5 passes of suction curettage were used to remove the intrauterine contents. A sharp curette was used and good cry was noted in 3 60 degrees. 1 final pass with the suction curette insured removal of all intrauterine contents. Patient was given 0.2mg IM methergine and speculum was removed. Bimanual massage was performed until good uterine tone was noted both in the fundus and lower uterine segment. Speculum re-placed in the vagina and complete hemostasis was noted. The tenaculum was removed and tenaculum sites noted to be hemostatic. The bivalved speculum was removed. The patient was transferred to the recovery room in good condition. Sponge, lap, needle, instrument counts correct x2. Diagnosis Discharge Diagnosis (1) Retained products of conception after induced termination of : Status: Acute (2) Anemia: Status: Acute (3) Blood transfusion during current hospitalisation: Status: Acute Problem List Completed Was Problem List Reviewed/Reconciled?: Yes (2) Anemia Qualifiers: Anemia type: iron deficiency Iron deficiency anemia type: chronic blood loss Qualified Code(s): D50.0 - Iron deficiency anemia secondary to blood loss (chronic)
--- NOTE | 2025-02-25 19:20 | SUR.PHASEI ---
1919 Patient arrived to recovery resting comfortably in [facility], sleeping and able to arouse with verbal prompting then drifts back to sleep, on oxygen 8L via oxy mask, breathing unlabored, vital signs stable, denies pain and nausea, dressing intact to vaginal area; peripad, no bleeding noted, report received from Monserrat MACK and Gt SPARKS
--- NOTE | 2025-02-25 19:23 | PD.GYNDS ---
Planned Discharge Date 02/25/25 DS: Providers Provider Date of admission: 02/25/2025 Primary care physician: Physician No Primary/Family Attending Provider on Admission: Kourtney Goodrich MD Consults: 02/25/25 15:07 Consult to Gynecology Stat Comment: Vaginal bleeding suspect retained products of conc Consulting Provider: Kourtney Goodrich Attending Provider on DC: Kourtney Goodrich MD Discharging Provider: Kourtney Goodrich MD DS: Diagnosis Problem List Completed Was Problem List Reviewed/Reconciled?: Yes Hospital Course Hospital Course Hospital course: Tiny is a 29yo presenting for continuous bleeding since early February when she underwent medical termination of with misoprostol and mifepristone. She took the medication and then began having daily bleeding. She had a follow up ultrasound at the clinic where the termination was performed and she states they told her the uterus was empty. However, she continued to have daily bleeding that waxed and waned, at times would pass large clots the size of her hand. One week ago she followed up at another hospital and was told she still had something in the uterus at which point she was given another dose of medication (presumably cytotec)- she notes she didn't experience much difference in bleeding afterwards. Yesterday she had significant amount of clots that passed and today she was feeling weak, lightheaded, easily fatigued which prompted her to come to the ER. --- She is now s/p uncomplicated suction D&C. She received 1u pRBCs. At time of discharge, Vitals normal, benign exam. Hemodynamically stable with no evidence of infection. Status at Discharge Functional status at discharge: independent ambulation Overall status at discharge: patient is back to baseline Time Spent with Patient Time attestation: Total time spent providing and/or coordinating discharge services: Time spent: Less than 30 minutes Exam - ANESTHESIA TECHNICIAN Vital Signs Temp Pulse Resp BP Pulse Ox O2 Del Method 97.9 F 98 18 112/64 100 Room Air 02/25/25 18:10 02/25/25 18:10 02/25/25 18:10 02/25/25 18:10 02/25/25 18:10 02/25/25 18:10 Narrative Exam General: well developed, well nourished, no acute distress, conversant Cardiac: normal heart rate Lungs: breathing without distress Abdomen: soft, non-tender, no rebound or guarding Extremities: no edema BLE Discharge Plan Plan Patient Disposition: HOME (Self Care) Patient condition on transfer: Stable Prescriptions/Referrals Prescriptions/Med Rec: New ferrous sulfate 325 mg (65 mg iron) tablet,delayed release (DR/EC) 325 mg PO QDAY Qty: 30 0RF doxycycline hyclate 100 mg capsule 200 mg PO .once Qty: 2 0RF ibuprofen 800 mg tablet 800 mg PO Q8H PRN (Reason: pain) Qty: 10 0RF Continued PNV no.95-ferrous fumarate-FA [] 28 mg iron- 800 mcg Tablet 1 tab PO QDAY Discontinued ibuprofen 600 mg tablet 600 mg PO Q6H PRN (Reason: pain) Qty: 30 0RF Referrals: Socrates Norton MD [Physician, SALES AND MARKETING ASSISTANT] No Primary/Family,Physician [Primary Care Provider] - In 1 week Patient/Caregiver Discharge Instructions Discharge Activity: activity as tolerated and other Other Discharge Activity Instructions:: vaginal rest for 4 weeks Other Discharge Diet Instructions: regular Education Materials: Dilation and Curettage, Anemia Print Language: [place] Activity Restrictions/Additional Instructions: follow up with OBGYN in 2 weeks for postoperative visit, call to schedule appointment Stand Alone Forms: [employer] Award Info., Patient Portal Info Letter Discharge Order Discharge Orders: Discharge (Routine); Ordered 02/25/25 Ordered By: Kourtney Goodrich
--- NOTE | 2025-02-25 20:43 | SUR.PHASEII ---
2042 Patient meets discharge criteria from recovery, awake and alert, breathing unlabored, vital signs stable, denies pain, dressing intact; no bleeding noted, eating ice chips; denies nausea, assisted with dressing into her clothing by her friend, discharge instructions given to patient and patients friend, friend signed discharge instructions. Patient given all her belongings prior to discharge, transported via wheelchair and left in a private vehicle.
[2025-02-28 06:43] LABS: Misc Send Out* See Sep Rpt
== END 2025-02-25 20:43 | disposition home or self-care (01) ==
LOC: SERX 16:52 → S2EX 16:53 → SERHOLD 19:27
PROVIDERS: Nurse Practitioner Family; Emergency Provider Family Medicine; Referring Provider Obstetrics & Gynecology; Visit Provider Obstetrics & Gynecology
PROC: (CPT 58120; principal; 2025-02-25 22:30)
DX: O07.4 Failed attempted termination of pregnancy without complication (principal); D50.0 Iron deficiency anemia secondary to blood loss (chronic); E66.9 Obesity, unspecified
CPT/HCPCS: 59812; 36415; 76801; 80048; 81001; 83036; 84702; 85025; 86850; 86900; 86901; 86923; A4217; A4649; G0378; J0330; J2210; J2250; J2704; J2765; J3010; J3490; P9016